=== PATIENT | female | born 1980 | race Caucasian/White ===

== ENCOUNTER 2017-06-14 20:15 | Emergency (ER) | payer SELFPAY ==
[~2017-06-14] VITALS: Ht 152.4 cm; Wt 59.9 kg
[2017-06-14 20:35] VITALS: BP_SYST 110
== END 2017-06-14 23:15 | disposition left against medical advice (07) ==
LOC: SED 20:15
DX: R42 Dizziness and giddiness (principal); Z53.21 Procedure and treatment not carried out due to patient leaving prior to being seen by health care provider